=== PATIENT | male | born 1950 | race African-American/Black ===

== ENCOUNTER 2017-08-05 23:38 | Inpatient (IN) | payer MEDICARE, MEDICAID ==
[~2017-08-05] VITALS: Ht 170.2 cm; Wt 71.7 kg
[~2017-08-05 23:38] MED LIST: DILANTIN; [UNRECOGNIZED DRUG - REMARK]
[2017-08-05] MEDS ORDERED: SODIUM CHLORIDE 0.9% 1,000 ML IV ONE ×2 (23:57)
[2017-08-05] MEDS ORDERED: ONDANSETRON HCL 4MG/2ML VIAL IV STA (23:57)
[2017-08-06 00:34] LABS: BASOPHILS % 0.7 % (0.0-2.0); EOSINOPHILS % 9.5 % (0.0-5.0); HEMATOCRIT. 41.8 % (42.0-52.0); HEMOGLOBIN. 13.8 g/dL (14.0-18.0); LYMPHOCYTES % 27.1 % (20.0-50.0); MEAN CORPUSCULAR HEMOGLOBIN 26.6 pg (28.0-32.0); MEAN CORPUSCULAR VOLUME 80.3 fL (80.0-94.0); MEAN PLATELET VOLUME 8.3 fl (7.4-10.4); MONOCYTES % 8.7 % (2.0-8.0); PLATELET 164 x1000/uL (130-400); RED BLOOD CELL COUNT 5.21 mill/uL (4.7-6.1); RED CELL DISTRIBUTION WIDTH 15.2 % (11.6-14.6)
[2017-08-06 00:40] LABS: CHLORIDE 106 mEq/L (98-107)
[2017-08-06 00:49] LABS: CARBON DIOXIDE 27 mEq/L (21-32)
[2017-08-06] MEDS ORDERED: LORAZEPAM 2MG/ML CPJ ONE (03:22)
[2017-08-06] MEDS ORDERED: SODIUM CHLORIDE 0.9% 1,000 ML IV SCH (03:53)
[2017-08-06] MEDS ORDERED: LORAZEPAM 2MG/ML CPJ IV ONE (04:00)
[2017-08-06 08:49] VITALS: BP 158/108
[2017-08-06] MEDS ORDERED: ACETAMINOPHEN 325MG TABLET PO PRN (10:45)
[2017-08-06] MEDS ORDERED: LORAZEPAM 2MG/ML CPJ IV PRN (10:45)
[2017-08-06] MEDS ORDERED: CLONIDINE 0.1MG TABLET PO PRN (10:45)
[2017-08-06] MEDS ORDERED: HYDROCODONE/ACETAMINOPHEN 5/325MG TABLET PO PRN (10:45)
[2017-08-06] MEDS ORDERED: DIPHENHYDRAMINE 50MG/ML VIAL IV PRN (10:45)
[2017-08-06] MEDS ORDERED: IPRATROPIUM/ALBUTEROL 0.5-3(2.5)MG/3ML NEB INH PRN (10:45)
[2017-08-06] MEDS ORDERED: ONDANSETRON HCL 4MG/2ML VIAL IV PRN (10:45)
[2017-08-06] MEDS ORDERED: LEVETIRACETAM 500MG PREMIX 100 ML IV SCH (11:00)
[2017-08-06 12:00] VITALS: BP 136/93
[2017-08-06] MEDS: LEVETIRACETAM 500MG in SODIUM CHLORIDE 0.9% 100ML IV SCH (13:44)
[2017-08-06] MEDS ORDERED: PNEUMOCOCCAL 23-VAL P-SAC VAC 0.5 ML IM ONE (13:45)
[2017-08-06 14:18] LABS: *AMPHETAMINES SCREEN URINE NEGATIVE (NEGATIVE); *BARBITURATES SCREEN URINE NEGATIVE (NEGATIVE); *BENZODIAZEPINES SCREEN URINE NEGATIVE (NEGATIVE); *COCAINE SCREEN URINE PRESUMTIVE POSITIVE (NEGATIVE); CANNABINOID URINE SCREEN NEGATIVE (NEGATIVE); METHADONE URINE SCREEN NEGATIVE (NEGATIVE); OPIATES URINE SCREEN NEGATIVE (NEGATIVE); PHENCYCLIDINE URINE SCREEN PRESUMTIVE POSITIVE (NEGATIVE)
[2017-08-06 16:00] VITALS: BP 127/91
[2017-08-06 20:00] VITALS: BP 128/82
[2017-08-06] MEDS ORDERED: LEVETIRACETAM 500MG TABLET PO SCH (21:00)
[2017-08-07] VITALS: BP 114/74
[2017-08-07] MEDS: LEVETIRACETAM 500MG in SODIUM CHLORIDE 0.9% 100ML IV SCH ×2 (01:00→12:17)
[2017-08-07 04:00] VITALS: BP 123/84
[2017-08-07 06:33] LABS: BASOPHILS % 0.5 % (0.0-2.0); HEMATOCRIT. 42.6 % (42.0-52.0); HEMOGLOBIN. 13.9 g/dL (14.0-18.0); LYMPHOCYTES % 36.1 % (20.0-50.0); MEAN CORPUSCULAR HEMOGLOBIN 26.5 pg (28.0-32.0); MEAN CORPUSCULAR VOLUME 81.3 fL (80.0-94.0); MEAN PLATELET VOLUME 9.1 fl (7.4-10.4); MONOCYTES % 6.1 % (2.0-8.0); NEUTROPHILS % 49.3 % (40.0-76.0); PLATELET 167 x1000/uL (130-400); RED BLOOD CELL COUNT 5.24 mill/uL (4.7-6.1); RED CELL DISTRIBUTION WIDTH 15.5 % (11.6-14.6)
[2017-08-07 08:00] VITALS: BP 141/84
[2017-08-07 08:45] LABS: CARBON DIOXIDE 27 mEq/L (21-32); CHLORIDE 110 mEq/L (98-107); HDL CHOLESTEROL 41 mg/dL (40-59); LDL CHOLESTEROL 68 mg/dL (5-100)
[2017-08-07 12:00] VITALS: BP 104/75
[2017-08-07] MEDS: ENOXAPARIN 40MG/0.4ML SYR SUBCUT SCH (12:17)
[2017-08-07] MEDS: CEFTRIAXONE 1 G PREMIX 50 ML IV SCH (14:31)
[2017-08-07 16:00] VITALS: BP 131/92
[2017-08-07] MEDS: CLOPIDOGREL 75MG TABLET PO SCH (17:24)
[2017-08-07] MEDS: FOLIC ACID 1MG TABLET PO SCH (17:24)
[2017-08-07] MEDS: THIAMINE HCL 100MG TABLET PO SCH (17:24)
[2017-08-07] MEDS: MULTIVITAMINS,THER W-MINERALS TABLET PO SCH (17:24)
[2017-08-07] MEDS ORDERED: PHENYTOIN SODIUM 1,000 MG in SODIUM CHLORIDE 0.9% 100 ML IV NR (18:00)
[2017-08-07 20:00] VITALS: BP 123/103
[2017-08-08] VITALS: BP 167/83
[2017-08-08 04:00] VITALS: BP 133/72
[2017-08-08 06:53] LABS: BASOPHILS % 0.5 % (0.0-2.0); EOSINOPHILS % 9.7 % (0.0-5.0); HEMOGLOBIN. 14.1 g/dL (14.0-18.0); LYMPHOCYTES % 33.4 % (20.0-50.0); MEAN CORPUSCULAR HEMOGLOBIN 26.5 pg (28.0-32.0); MEAN PLATELET VOLUME 9.1 fl (7.4-10.4); MONOCYTES % 6.1 % (2.0-8.0); NEUTROPHILS % 50.3 % (40.0-76.0); PLATELET 158 x1000/uL (130-400); RED BLOOD CELL COUNT 5.31 mill/uL (4.7-6.1); RED CELL DISTRIBUTION WIDTH 15.4 % (11.6-14.6)
[2017-08-08 08:00] VITALS: BP 134/89
[2017-08-08 08:30] LABS: CARBON DIOXIDE 25 mEq/L (21-32); CHLORIDE 109 mEq/L (98-107)
[2017-08-08] MEDS ORDERED: PHENYTOIN SODIUM 700 MG in SODIUM CHLORIDE 0.9% 100 ML IV SCH (09:00)
[2017-08-08] MEDS: THIAMINE HCL 100MG TABLET PO SCH (09:25)
[2017-08-08] MEDS: FOLIC ACID 1MG TABLET PO SCH (09:25)
[2017-08-08] MEDS: ENOXAPARIN 40MG/0.4ML SYR SUBCUT SCH (09:25)
[2017-08-08] MEDS: MULTIVITAMINS,THER W-MINERALS TABLET PO SCH (09:25)
[2017-08-08] MEDS: CLOPIDOGREL 75MG TABLET PO SCH (09:25)
[2017-08-08 12:00] VITALS: BP 162/98
[2017-08-08] MEDS: CEFTRIAXONE 1 G PREMIX 50 ML IV SCH (15:58)
[2017-08-08 16:00] VITALS: BP 108/83
[2017-08-08 20:00] VITALS: BP 149/111
[2017-08-09] VITALS: BP 139/100
[2017-08-09 04:00] VITALS: BP 136/94
[2017-08-09 06:44] LABS: BASOPHILS % 0.3 % (0.0-2.0); EOSINOPHILS % 8.6 % (0.0-5.0); HEMATOCRIT. 46.3 % (42.0-52.0); HEMOGLOBIN. 15.2 g/dL (14.0-18.0); LYMPHOCYTES % 21.3 % (20.0-50.0); MEAN CORPUSCULAR HEMOGLOBIN 26.7 pg (28.0-32.0); MEAN CORPUSCULAR VOLUME 81.4 fL (80.0-94.0); MEAN PLATELET VOLUME 8.7 fl (7.4-10.4); MONOCYTES % 6.8 % (2.0-8.0); PLATELET 169 x1000/uL (130-400); RED BLOOD CELL COUNT 5.69 mill/uL (4.7-6.1); RED CELL DISTRIBUTION WIDTH 14.9 % (11.6-14.6)
[2017-08-09 08:00] VITALS: BP 135/93
[2017-08-09 08:31] LABS: CARBON DIOXIDE 25 mEq/L (21-32); CHLORIDE 106 mEq/L (98-107)
[2017-08-09] MEDS: MULTIVITAMINS,THER W-MINERALS TABLET PO SCH (09:33)
[2017-08-09] MEDS: THIAMINE HCL 100MG TABLET PO SCH (09:33)
[2017-08-09] MEDS: FOLIC ACID 1MG TABLET PO SCH (09:33)
[2017-08-09] MEDS: CLOPIDOGREL 75MG TABLET PO SCH (09:33)
[2017-08-09] MEDS: ENOXAPARIN 40MG/0.4ML SYR SUBCUT SCH (09:34)
[2017-08-09] MEDS ORDERED: PHENYTOIN SODIUM 100MG/2ML VIAL IV SCH (10:00)
[2017-08-09 12:00] VITALS: BP 120/87
[2017-08-09 14:50] VITALS: BP 120/87
== END 2017-08-09 15:18 | disposition home or self-care (01) | DRG 100 ==
LOC: EDUNIT# 23:38 → ER 23:38 → 7WST 08-06 03:55 → ENRESERV 08-06 07:20
PROVIDERS: ADMIT Internal Medicine; ATTEND Internal Medicine
PROC: 4A00X4Z Measurement of Central Nervous Electrical Activity, External Approach (ICD-10-PCS; principal; 2017-08-08)
DX: G40.409 Other generalized epilepsy and epileptic syndromes, not intractable, without status epilepticus (principal); I63.9 Cerebral infarction, unspecified; I10 Essential (primary) hypertension; F14.10 Cocaine abuse, uncomplicated; D64.9 Anemia, unspecified; Z91.14 Patient's other noncompliance with medication regimen; Z91.19 Patient's noncompliance with other medical treatment and regimen; Z79.899 Other long term (current) drug therapy
CPT/HCPCS: 36415; 70450; 70551; 71010; 80048; 80053; 80061; 80185; 80305; 84484; 85025; 87040; 87086; 93306; 93880; 96361; 96374; 96375; 97116; 97162; 97530; 99291; C1893; G0482; J0696; J1165; J1650; J1953; J2060; J2405; J7030; J7040; J7050

== ENCOUNTER 2017-10-14 04:41 | Emergency (ER) | payer MEDICARE, MEDICAID ==
[~2017-10-14] VITALS: Ht 170.2 cm; Wt 68.0 kg
[2017-10-14] MEDS ORDERED: LEVETIRACETAM 500MG PREMIX 100 ML IV ONE (05:30)
[2017-10-14] MEDS ORDERED: LORAZEPAM 2MG/ML CPJ IV ONE (05:30)
[2017-10-14 05:48] LABS: BASOPHILS % 0.5 % (0.0-2.0); EOSINOPHILS % 8.3 % (0.0-5.0); HEMATOCRIT. 43.2 % (42.0-52.0); HEMOGLOBIN. 14.5 g/dL (14.0-18.0); LYMPHOCYTES % 16.1 % (20.0-50.0); MEAN CORPUSCULAR HEMOGLOBIN 27.3 pg (28.0-32.0); MEAN CORPUSCULAR VOLUME 81.1 fL (80.0-94.0); MEAN PLATELET VOLUME 8.6 fl (7.4-10.4); MONOCYTES % 6.7 % (2.0-8.0); NEUTROPHILS % 68.4 % (40.0-76.0); PLATELET 177 x1000/uL (130-400); RED BLOOD CELL COUNT 5.33 mill/uL (4.7-6.1); RED CELL DISTRIBUTION WIDTH 16.3 % (11.6-14.6)
[2017-10-14 06:26] LABS: CARBON DIOXIDE 29 mEq/L (21-32); CHLORIDE 108 mEq/L (98-107)
[2017-10-14 08:46] VITALS: BP 147/101
== END 2017-10-14 12:28 | disposition home or self-care (01) ==
LOC: ER 04:41
DX: G40.909 Epilepsy, unspecified, not intractable, without status epilepticus (principal); I10 Essential (primary) hypertension
CPT/HCPCS: 36415; 80053; 85025; 96365; 96375; 99284; J1953; J2060

== ENCOUNTER 2018-01-06 04:24 | Emergency (ER) | payer MEDICARE, MEDICAID ==
[~2018-01-06] VITALS: Ht 180.3 cm; Wt 90.0 kg
[2018-01-06] MEDS ORDERED: SODIUM CHLORIDE 0.9% 1,000 ML IV ONE (12:01)
[2018-01-06 14:17] LABS: BASOPHILS % 0.5 % (0.0-2.0); HEMATOCRIT. 40.5 % (42.0-52.0); HEMOGLOBIN. 13.2 g/dL (14.0-18.0); LYMPHOCYTES % 27.7 % (20.0-50.0); MEAN CORPUSCULAR HEMOGLOBIN 25.5 pg (28.0-32.0); MEAN CORPUSCULAR VOLUME 78.2 fL (80.0-94.0); MEAN PLATELET VOLUME 8.4 fl (7.4-10.4); MONOCYTES % 6.2 % (2.0-8.0); NEUTROPHILS % 60.6 % (40.0-76.0); PLATELET 269 x1000/uL (130-400); RED BLOOD CELL COUNT 5.18 mill/uL (4.7-6.1); RED CELL DISTRIBUTION WIDTH 16.2 % (11.6-14.6)
[2018-01-06 14:26] LABS: PARTIAL THROMBOPLASTIN TIME 25.9 sec (23.4-31.0); PROTHROMBIN TIME 10.3 sec (9.4-11.6)
[2018-01-06 14:33] LABS: AMMONIA < 25 uMol/L (<32)
[2018-01-06 14:35] LABS: CHLORIDE 110 mEq/L (98-107); CREATINE KINASE MB FRACTION 2.8 ng/mL (0.5-3.6); ETHANOL BLOOD < 10 mg/dL; TROPONIN I < 0.02 ng/mL (0.00-0.04)
[2018-01-06 15:00] LABS: CARBAMAZEPINE < 0.5 ug/mL (4-12); PHENOBARBITAL < 2.1 ug/mL (15.0-40.0)
[2018-01-06] MEDS ORDERED: LEVETIRACETAM 500MG PREMIX 100 ML IV ONE (15:00)
[2018-01-06] MEDS ORDERED: ASPIRIN 325MG EC TABLET PO ONE (16:30)
[2018-01-06 17:13] LABS: KETONES URINE NEGATIVE (NEGATIVE); LEUKOCYTE ESTERASE URINE 1+ (NEGATIVE); NITRITE URINE NEGATIVE (NEGATIVE); OCCULT BLOOD URINE NEGATIVE (NEGATIVE); PH URINE 5.5 (4.5-8.0); PROTEIN URINE NEGATIVE (NEGATIVE); SPECIFIC GRAVITY URINE 1.018 (1.005-1.030); UROBILINOGEN URINE 0.2 E.U./dL (0.2-1.0)
[2018-01-06 17:17] LABS: CLARITY URINE SL HAZY (CLEAR); COLOR URINE PALE YELLOW (YELLOW)
[2018-01-06 17:38] LABS: *AMPHETAMINES SCREEN URINE NEGATIVE (NEGATIVE); *BARBITURATES SCREEN URINE NEGATIVE (NEGATIVE); *BENZODIAZEPINES SCREEN URINE NEGATIVE (NEGATIVE); *COCAINE SCREEN URINE PRESUMTIVE POSITIVE (NEGATIVE); CANNABINOID URINE SCREEN PRESUMTIVE POSITIVE (NEGATIVE); METHADONE URINE SCREEN NEGATIVE (NEGATIVE); OPIATES URINE SCREEN NEGATIVE (NEGATIVE); PHENCYCLIDINE URINE SCREEN PRESUMTIVE POSITIVE (NEGATIVE)
[2018-01-06 18:45] VITALS: BP 148/83
== END 2018-01-06 20:25 | disposition left against medical advice (07) ==
LOC: ER 04:27 → CANRESERV 18:51 → ENRESERV 18:51 → ER 20:25 → CANBEDREQ 21:19
DX: G93.41 Metabolic encephalopathy (principal); R41.82 Altered mental status, unspecified; G40.909 Epilepsy, unspecified, not intractable, without status epilepticus; I10 Essential (primary) hypertension; F12.10 Cannabis abuse, uncomplicated; F14.10 Cocaine abuse, uncomplicated; F16.10 Hallucinogen abuse, uncomplicated; D64.9 Anemia, unspecified; Z86.73 Personal history of transient ischemic attack (TIA), and cerebral infarction without residual deficits; Z79.82 Long term (current) use of aspirin
CPT/HCPCS: 36415; 70450; 71045; 80053; 80156; 80165; 80184; 80185; 80305; 81001; 82140; 82553; 84484; 85025; 85610; 85730; 93005; 96361; 96365; 99285; G0482; J1953; J7030

== ENCOUNTER 2018-02-09 08:04 | Emergency (ER) | payer MEDICARE, MEDICAID ==
[~2018-02-09] VITALS: Ht 185.4 cm; Wt 100.0 kg
[2018-02-09] MEDS ORDERED: SODIUM CHLORIDE 0.9% 1,000 ML IV ONE (08:17)
[2018-02-09] MEDS ORDERED: MIDAZOLAM HCL 2 MG/2 ML VIAL IM ONE (08:45)
[2018-02-09 10:36] LABS: BASOPHILS % 0.4 % (0.0-2.0); EOSINOPHILS % 6.8 % (0.0-5.0); HEMATOCRIT. 45.1 % (42.0-52.0); HEMOGLOBIN. 14.5 g/dL (14.0-18.0); LYMPHOCYTES % 17.7 % (20.0-50.0); MEAN CORPUSCULAR HEMOGLOBIN 24.8 pg (28.0-32.0); MEAN CORPUSCULAR VOLUME 77.2 fL (80.0-94.0); MEAN PLATELET VOLUME 8.8 fl (7.4-10.4); MONOCYTES % 4.3 % (2.0-8.0); NEUTROPHILS % 70.8 % (40.0-76.0); PLATELET 256 x1000/uL (130-400); RED BLOOD CELL COUNT 5.84 mill/uL (4.7-6.1); RED CELL DISTRIBUTION WIDTH 17.4 % (11.6-14.6)
[2018-02-09 10:45] LABS: PARTIAL THROMBOPLASTIN TIME 27.2 sec (23.4-31.0); PROTHROMBIN TIME 10.7 sec (9.4-11.6)
[2018-02-09 10:47] LABS: CHLORIDE 106 mEq/L (98-107); ETHANOL BLOOD < 10 mg/dL
[2018-02-09 11:01] LABS: CARBAMAZEPINE < 0.5 ug/mL (4-12); PHENOBARBITAL < 2.1 ug/mL (15.0-40.0); VALPROIC ACID < 3.0 ug/mL (50-100)
[2018-02-09] MEDS ORDERED: OLANZAPINE 10 MG/VIAL IM ONE (11:30)
[2018-02-09] MEDS ORDERED: LEVETIRACETAM 500MG PREMIX 100 ML IV ONE ×2 (11:30→13:30)
[2018-02-09] MEDS ORDERED: STERILE WATER FOR INJECTION 10ML VIAL ONE (11:40)
[2018-02-09 17:54] VITALS: BP 169/102
== END 2018-02-09 17:57 | disposition home or self-care (01) ==
LOC: ER 08:04
DX: T40.5X1A Poisoning by cocaine, accidental (unintentional), initial encounter (principal); R56.9 Unspecified convulsions; I10 Essential (primary) hypertension; Z91.14 Patient's other noncompliance with medication regimen; Y92.488 Other paved roadways as the place of occurrence of the external cause
CPT/HCPCS: 36415; 70450; 80048; 80156; 80165; 80184; 80185; 85025; 85610; 85730; 93005; 96365; 96366; 96372; 99285; A4216; G0482; J1953; J2250; J3490; J7030

== ENCOUNTER 2018-02-15 06:17 | Emergency (ER) | payer MEDICARE, MEDICAID ==
[~2018-02-15] VITALS: Ht 182.9 cm; Wt 82.0 kg
[2018-02-15] MEDS ORDERED: SODIUM CHLORIDE 0.9% 1,000 ML IV ONE (09:00)
[2018-02-15] MEDS ORDERED: LEVETIRACETAM 1000MG/100ML 100 ML IV ONE (09:00)
[2018-02-15 10:47] VITALS: BP 166/117
== END 2018-02-15 11:14 | disposition home or self-care (01) ==
LOC: ER 06:17
DX: S00.81XA Abrasion of other part of head, initial encounter (principal); R56.9 Unspecified convulsions; I10 Essential (primary) hypertension; F14.10 Cocaine abuse, uncomplicated; Z91.14 Patient's other noncompliance with medication regimen; W18.39XA Other fall on same level, initial encounter; Y93.89 Activity, other specified; Y92.89 Other specified places as the place of occurrence of the external cause; Y99.8 Other external cause status
CPT/HCPCS: 70450; 93005; 96361; 96365; 99285; J1953; J7030

== ENCOUNTER 2018-04-02 03:44 | Inpatient (IN) | payer MEDICARE, MEDICAID ==
[~2018-04-02] VITALS: Ht 182.9 cm; Wt 86.2 kg
[2018-04-02] MEDS ORDERED: SODIUM CHLORIDE 0.9% 1,000 ML IV ONE (03:57)
[2018-04-02] MEDS ORDERED: LEVETIRACETAM 1000MG/100ML 100 ML IV ONE (05:15)
[2018-04-02] MEDS ORDERED: LORAZEPAM 2MG/ML CPJ IM ONE (05:15)
[2018-04-02 05:28] LABS: BASOPHILS % 0.6 % (0.0-2.0); EOSINOPHILS % 6.5 % (0.0-5.0); HEMATOCRIT. 42.8 % (42.0-52.0); LYMPHOCYTES % 16.7 % (20.0-50.0); MEAN CORPUSCULAR HEMOGLOBIN 26.2 pg (28.0-32.0); MEAN CORPUSCULAR VOLUME 79.9 fL (80.0-94.0); MEAN PLATELET VOLUME 8.8 fl (7.4-10.4); MONOCYTES % 9.3 % (2.0-8.0); NEUTROPHILS % 66.9 % (40.0-76.0); PLATELET 200 x1000/uL (130-400); RED BLOOD CELL COUNT 5.35 mill/uL (4.7-6.1); RED CELL DISTRIBUTION WIDTH 18.4 % (11.6-14.6)
[2018-04-02 05:33] LABS: CHLORIDE 107 mEq/L (98-107)
[2018-04-02 05:38] LABS: ETHANOL BLOOD < 10 mg/dL
[2018-04-02 05:52] LABS: CARBAMAZEPINE < 0.5 ug/mL (4-12); PHENOBARBITAL < 2.1 ug/mL (15.0-40.0); VALPROIC ACID < 3.0 ug/mL (50-100)
[2018-04-02] MEDS ORDERED: LORAZEPAM 2MG/ML CPJ IV ONE (07:45)
[2018-04-02] MEDS: FOLIC ACID 1MG TABLET PO SCH (09:15)
[2018-04-02] MEDS: THIAMINE HCL 100MG TABLET PO SCH (09:15)
[2018-04-02] MEDS: MULTIVITAMINS,THER W-MINERALS TABLET PO SCH (09:15)
[2018-04-02] MEDS ORDERED: PHENYTOIN SODIUM 1,000 MG in SODIUM CHLORIDE 0.9% 100 ML IV ONE (10:00)
[2018-04-02] MEDS ORDERED: ONDANSETRON HCL 4MG/2ML VIAL IV PRN (11:30)
[2018-04-02] MEDS ORDERED: IPRATROPIUM/ALBUTEROL 0.5-3(2.5)MG/3ML NEB INH PRN (11:30)
[2018-04-02] MEDS ORDERED: LORAZEPAM 2MG/ML CPJ IV PRN (11:30)
[2018-04-02] MEDS ORDERED: ENALAPRIL 1.25MG/ML VIAL 1ML IV PRN (13:45)
[2018-04-02 15:03] VITALS: BP 146/88
[2018-04-02] MEDS ORDERED: ACETAMINOPHEN 650MG SUPP PR NR (15:15)
[2018-04-02 16:00] VITALS: BP 140/79
[2018-04-02] MEDS: DEXT 5%/0.45% NACL 1000ML 1,000 ML IV SCH (16:10)
[2018-04-02 20:00] VITALS: BP 120/58
[2018-04-02 23:58] VITALS: BP 121/80
[2018-04-03 00:07] LABS: CREATINE KINASE 386 IU/L (39-308)
[2018-04-03 03:19] LABS: CLARITY URINE CLEAR (CLEAR); COLOR URINE YELLOW (YELLOW); KETONES URINE NEGATIVE (NEGATIVE); LEUKOCYTE ESTERASE URINE NEGATIVE (NEGATIVE); NITRITE URINE NEGATIVE (NEGATIVE); OCCULT BLOOD URINE NEGATIVE (NEGATIVE); PH URINE 5.5 (4.5-8.0); PROTEIN URINE NEGATIVE (NEGATIVE); SPECIFIC GRAVITY URINE 1.018 (1.005-1.030)
[2018-04-03 03:53] LABS: *AMPHETAMINES SCREEN URINE NEGATIVE (NEGATIVE); *BARBITURATES SCREEN URINE NEGATIVE (NEGATIVE); *BENZODIAZEPINES SCREEN URINE NEGATIVE (NEGATIVE); *COCAINE SCREEN URINE PRESUMTIVE POSITIVE (NEGATIVE); METHADONE URINE SCREEN NEGATIVE (NEGATIVE); OPIATES URINE SCREEN NEGATIVE (NEGATIVE)
[2018-04-03 03:54] LABS: CANNABINOID URINE SCREEN PRESUMTIVE POSITIVE (NEGATIVE); PHENCYCLIDINE URINE SCREEN PRESUMTIVE POSITIVE (NEGATIVE)
[2018-04-03 04:00] VITALS: BP 143/82
[2018-04-03] MEDS: DEXT 5%/0.45% NACL 1000ML 1,000 ML IV SCH ×2 (06:07→08:39)
[2018-04-03 07:42] LABS: BASOPHILS % 0.5 % (0.0-2.0); HEMATOCRIT. 40.9 % (42.0-52.0); HEMOGLOBIN. 13.5 g/dL (14.0-18.0); LYMPHOCYTES % 15.9 % (20.0-50.0); MEAN CORPUSCULAR HEMOGLOBIN 25.8 pg (28.0-32.0); MEAN PLATELET VOLUME 9.1 fl (7.4-10.4); NEUTROPHILS % 72.6 % (40.0-76.0); PLATELET 189 x1000/uL (130-400); RED BLOOD CELL COUNT 5.25 mill/uL (4.7-6.1); RED CELL DISTRIBUTION WIDTH 18.1 % (11.6-14.6)
[2018-04-03 08:06] LABS: CHLORIDE 107 mEq/L (98-107)
[2018-04-03 08:11] LABS: PHOSPHORUS 2.5 mg/dL (2.5-4.9)
[2018-04-03 08:14] LABS: CREATINE KINASE 274 IU/L (39-308)
[2018-04-03] MEDS ORDERED: ACETAMINOPHEN 650MG/20.3ML UDC PO PRN (08:45)
[2018-04-03] MEDS: THIAMINE HCL 100MG TABLET PO SCH (09:00)
[2018-04-03] MEDS: MULTIVITAMINS,THER W-MINERALS TABLET PO SCH (09:00)
[2018-04-03] MEDS: FOLIC ACID 1MG TABLET PO SCH (09:00)
[2018-04-03] MEDS: PANTOPRAZOLE SODIUM 40 MG/VIAL IV SCH (09:01)
[2018-04-03] MEDS ORDERED: PHENYTOIN SODIUM 800 MG in SODIUM CHLORIDE 0.9% 100 ML IV NR (09:30)
[2018-04-03 12:00] VITALS: BP 116/75
[2018-04-03 16:00] VITALS: BP 155/60
[2018-04-03 20:00] VITALS: BP 119/78
[2018-04-04] VITALS: BP 116/77
[2018-04-04] MEDS: DEXT 5%/0.45% NACL 1000ML 1,000 ML IV SCH (01:46)
[2018-04-04 04:00] VITALS: BP 139/64
[2018-04-04 06:36] LABS: BASOPHILS % 0.4 % (0.0-2.0); HEMATOCRIT. 41.4 % (42.0-52.0); HEMOGLOBIN. 13.6 g/dL (14.0-18.0); LYMPHOCYTES % 16.6 % (20.0-50.0); MEAN CORPUSCULAR HEMOGLOBIN 25.8 pg (28.0-32.0); MEAN CORPUSCULAR VOLUME 78.6 fL (80.0-94.0); MEAN PLATELET VOLUME 8.8 fl (7.4-10.4); MONOCYTES % 8.6 % (2.0-8.0); NEUTROPHILS % 67.4 % (40.0-76.0); PLATELET 199 x1000/uL (130-400); RED BLOOD CELL COUNT 5.27 mill/uL (4.7-6.1); RED CELL DISTRIBUTION WIDTH 18.1 % (11.6-14.6)
[2018-04-04 07:50] LABS: CHLORIDE 110 mEq/L (98-107)
[2018-04-04 08:01] VITALS: BP 124/88
[2018-04-04] MEDS: MULTIVITAMINS,THER W-MINERALS TABLET PO SCH (09:31)
[2018-04-04] MEDS: THIAMINE HCL 100MG TABLET PO SCH (09:31)
[2018-04-04] MEDS: FOLIC ACID 1MG TABLET PO SCH (09:31)
[2018-04-04] MEDS: PANTOPRAZOLE SODIUM 40 MG/VIAL IV SCH (09:31)
[2018-04-04] MEDS ORDERED: PHENYTOIN SODIUM 500 MG in SODIUM CHLORIDE 0.9% 100 ML IV SCH (10:30)
[2018-04-04 12:00] VITALS: BP 135/84
[2018-04-04 17:48] VITALS: BP 135/84
[2018-04-04] MEDS ORDERED: PHENYTOIN SODIUM EXTENDED 100MG CAPSULE PO SCH (21:00)
== END 2018-04-04 18:53 | disposition home or self-care (01) | DRG 101 ==
LOC: ER 03:44 → 8WST 05:42 → EDBEDREQ 05:43 → ENRESERV 08:03 → SUPCPDRO 10:20
PROVIDERS: ADMIT Family Medicine Adult Medicine; ATTEND Family Medicine Adult Medicine
PROC: 4A00X4Z Measurement of Central Nervous Electrical Activity, External Approach (ICD-10-PCS; principal; 2018-04-03)
DX: G40.909 Epilepsy, unspecified, not intractable, without status epilepticus (principal); E78.00 Pure hypercholesterolemia, unspecified; W08.XXXA Fall from other furniture, initial encounter; I10 Essential (primary) hypertension; R73.9 Hyperglycemia, unspecified; R50.9 Fever, unspecified; F14.10 Cocaine abuse, uncomplicated; F12.10 Cannabis abuse, uncomplicated; Z86.73 Personal history of transient ischemic attack (TIA), and cerebral infarction without residual deficits; Z91.14 Patient's other noncompliance with medication regimen; Y93.89 Activity, other specified; Y99.8 Other external cause status; Y92.830 Public park as the place of occurrence of the external cause
CPT/HCPCS: 36415; 70450; 70551; 71045; 80048; 80053; 80156; 80165; 80184; 80185; 80305; 81003; 82550; 82962; 83735; 84100; 85025; 87040; 92610; 96361; 96365; 96366; 96372; 96375; 97162; 99285; C9113; G0482; J1165; J1953; J2060; J2405; J7030; J7050

== ENCOUNTER 2018-05-11 02:58 | Emergency (ER) | payer MEDICARE, MEDICAID ==
[~2018-05-11] VITALS: Ht 182.9 cm; Wt 90.0 kg
[2018-05-11] MEDS ORDERED: LORAZEPAM 2MG/ML CPJ ONE (05:39)
[2018-05-11] MEDS ORDERED: LORAZEPAM 2MG/ML CPJ IM ONE (05:45)
[2018-05-11] MEDS ORDERED: LEVETIRACETAM 500MG TABLET PO ONE (05:45)
[2018-05-11 08:58] VITALS: BP 151/89
== END 2018-05-11 09:02 | disposition home or self-care (01) ==
LOC: ER 03:00
DX: G40.909 Epilepsy, unspecified, not intractable, without status epilepticus (principal); Z91.14 Patient's other noncompliance with medication regimen; R03.0 Elevated blood-pressure reading, without diagnosis of hypertension; F14.10 Cocaine abuse, uncomplicated; F15.10 Other stimulant abuse, uncomplicated; F17.210 Nicotine dependence, cigarettes, uncomplicated
CPT/HCPCS: 36415; 82947; 82962; 96372; 99283; J2060

== ENCOUNTER 2018-05-19 17:40 | Emergency (ER) | payer MEDICARE, MEDICAID ==
[~2018-05-19] VITALS: Ht 185.4 cm; Wt 89.0 kg
[2018-05-19 18:40] LABS: CLARITY URINE CLEAR (CLEAR); COLOR URINE YELLOW (YELLOW); KETONES URINE NEGATIVE (NEGATIVE); LEUKOCYTE ESTERASE URINE NEGATIVE (NEGATIVE); NITRITE URINE NEGATIVE (NEGATIVE); OCCULT BLOOD URINE NEGATIVE (NEGATIVE); PH URINE 5.5 (4.5-8.0); PROTEIN URINE NEGATIVE (NEGATIVE); SPECIFIC GRAVITY URINE 1.016 (1.005-1.030); UROBILINOGEN URINE 0.2 E.U./dL (0.2-1.0)
[2018-05-19 18:47] LABS: *AMPHETAMINES SCREEN URINE NEGATIVE (NEGATIVE); *BARBITURATES SCREEN URINE NEGATIVE (NEGATIVE); *BENZODIAZEPINES SCREEN URINE NEGATIVE (NEGATIVE); *COCAINE SCREEN URINE PRESUMTIVE POSITIVE (NEGATIVE); METHADONE URINE SCREEN NEGATIVE (NEGATIVE); OPIATES URINE SCREEN NEGATIVE (NEGATIVE)
[2018-05-19 18:48] LABS: CANNABINOID URINE SCREEN NEGATIVE (NEGATIVE); PHENCYCLIDINE URINE SCREEN PRESUMTIVE POSITIVE (NEGATIVE)
[2018-05-19 19:24] LABS: BASOPHILS % 0.9 % (0.0-2.0); HEMATOCRIT. 41.8 % (42.0-52.0); HEMOGLOBIN. 13.7 g/dL (14.0-18.0); LYMPHOCYTES % 18.6 % (20.0-50.0); MEAN CORPUSCULAR VOLUME 79.4 fL (80.0-94.0); MEAN PLATELET VOLUME 8.5 fl (7.4-10.4); MONOCYTES % 5.2 % (2.0-8.0); NEUTROPHILS % 67.3 % (40.0-76.0); PLATELET 244 x1000/uL (130-400); RED BLOOD CELL COUNT 5.26 mill/uL (4.7-6.1); RED CELL DISTRIBUTION WIDTH 16.6 % (11.6-14.6)
[2018-05-19 19:28] LABS: CHLORIDE 108 mEq/L (98-107)
[2018-05-19] MEDS ORDERED: SODIUM CHLORIDE 0.9% 1,000 ML IV ONE (19:30)
[2018-05-19 19:32] LABS: ETHANOL BLOOD < 10 mg/dL
[2018-05-19] MEDS ORDERED: PHENYTOIN SODIUM 1,000 MG in SODIUM CHLORIDE 0.9% 100 ML IV ONE (21:30)
[2018-05-19 23:20] VITALS: BP 141/70
== END 2018-05-19 23:21 | disposition home or self-care (01) ==
LOC: ER 17:40
DX: G40.909 Epilepsy, unspecified, not intractable, without status epilepticus (principal); R40.4 Transient alteration of awareness; F14.10 Cocaine abuse, uncomplicated; F16.10 Hallucinogen abuse, uncomplicated; F19.10 Other psychoactive substance abuse, uncomplicated; I10 Essential (primary) hypertension; F10.10 Alcohol abuse, uncomplicated; Y90.0 Blood alcohol level of less than 20 mg/100 ml
CPT/HCPCS: 36415; 71045; 80053; 80185; 80305; 81003; 82962; 85025; 93005; 96361; 96365; 99285; G0482; J1165; J7030; J7050

== ENCOUNTER 2018-05-31 00:01 | Emergency (ER) | payer MEDICARE, MEDICAID ==
[~2018-05-31] VITALS: Ht 177.8 cm; Wt 75.0 kg
[2018-05-31 00:51] LABS: EOSINOPHILS % 8.2 % (0.0-5.0); HEMOGLOBIN. 13.3 g/dL (14.0-18.0); LYMPHOCYTES % 23.5 % (20.0-50.0); MEAN CORPUSCULAR HEMOGLOBIN 25.9 pg (28.0-32.0); MEAN CORPUSCULAR VOLUME 79.8 fL (80.0-94.0); MEAN PLATELET VOLUME 8.1 fl (7.4-10.4); MONOCYTES % 7.7 % (2.0-8.0); NEUTROPHILS % 59.6 % (40.0-76.0); PLATELET 196 x1000/uL (130-400); RED BLOOD CELL COUNT 5.14 mill/uL (4.7-6.1); RED CELL DISTRIBUTION WIDTH 16.2 % (11.6-14.6)
[2018-05-31 00:56] LABS: CHLORIDE 109 mEq/L (98-107)
[2018-05-31 00:59] LABS: ETHANOL BLOOD < 10 mg/dL
[2018-05-31] MEDS ORDERED: LORAZEPAM 2MG/ML CPJ ONE (01:24)
[2018-05-31] MEDS ORDERED: PHENYTOIN SODIUM EXTENDED 100MG CAPSULE PO ONE (01:30)
[2018-05-31 01:43] LABS: CLARITY URINE CLEAR (CLEAR); COLOR URINE YELLOW (YELLOW); KETONES URINE NEGATIVE (NEGATIVE); LEUKOCYTE ESTERASE URINE NEGATIVE (NEGATIVE); NITRITE URINE NEGATIVE (NEGATIVE); OCCULT BLOOD URINE NEGATIVE (NEGATIVE); PH URINE 5.5 (4.5-8.0); PROTEIN URINE NEGATIVE (NEGATIVE); SPECIFIC GRAVITY URINE 1.015 (1.005-1.030); UROBILINOGEN URINE 0.2 E.U./dL (0.2-1.0)
[2018-05-31 01:51] LABS: *AMPHETAMINES SCREEN URINE NEGATIVE (NEGATIVE); *BARBITURATES SCREEN URINE NEGATIVE (NEGATIVE); *BENZODIAZEPINES SCREEN URINE NEGATIVE (NEGATIVE); *COCAINE SCREEN URINE PRESUMTIVE POSITIVE (NEGATIVE)
[2018-05-31 01:52] LABS: METHADONE URINE SCREEN NEGATIVE (NEGATIVE); OPIATES URINE SCREEN NEGATIVE (NEGATIVE); PHENCYCLIDINE URINE SCREEN PRESUMTIVE POSITIVE (NEGATIVE)
[2018-05-31 01:53] LABS: CANNABINOID URINE SCREEN NEGATIVE (NEGATIVE)
[2018-05-31] MEDS ORDERED: LORAZEPAM 2MG/ML CPJ IM ONE (02:00)
[2018-05-31 04:03] VITALS: BP 148/90
== END 2018-05-31 04:06 | disposition home or self-care (01) ==
LOC: ER 00:01
DX: G40.909 Epilepsy, unspecified, not intractable, without status epilepticus (principal); F14.10 Cocaine abuse, uncomplicated; Z91.14 Patient's other noncompliance with medication regimen
CPT/HCPCS: 36415; 70450; 71045; 80053; 80305; 80307; 80329; 81003; 82962; 84443; 85025; 93005; 96372; 99285; G0482; J2060